=== PATIENT | female | born 2000 | race Caucasian/White ===

== ENCOUNTER 2024-05-01 10:52 | Emergency (ER) | payer BC, SELFPAY ==
[2024-05-01 11:22] VITALS: BP 116/87; PULSE 111; RESP 16; TEMP 36.5; O2SAT 99
[2024-05-01 11:30] LABS: EDUAAPPEAR Cloudy; EDUABILI Negative (Negative); EDUABLOOD 3+ (Negative); EDUACOLOR1 Dark; EDUAGLUCOSE Negative (Negative); EDUAKETONE Negative (Negative); EDUALEUKO Trace (Negative); EDUANITRATE Negative (Negative); EDUAPH 5.5; EDUAPROTEIN 1+ (Negative); EDUAUROBILI 0.2
--- NOTE | 2024-05-01 11:32 | ED.GENADULT ---
HPI - General Adult General Chief complaint: Urogenital-Female Stated complaint: UTI Symptoms Time Seen by Provider: 05/01/24 11:33 Source: patient, RN notes reviewed and old records reviewed Mode of arrival: ambulatory Limitations: no limitations History of Present Illness HPI narrative: 24-year-old female to [facility] Care complaint brown/ red urine since yesterday morning. Patient endorses chronic history of urinary tract infections as well as kidney stones. Patient states he passed a kidney stone successfully at home 1 month ago. Patient sees urology at [facility]. Patient denies flank pain, abdominal pain, pain with urination, urgency, frequency, allergies , nausea, fever. Patient resting comfortably in exam room in no acute distress. Related Data Home Medications Medication Instructions Recorded Confirmed duloxetine 60 mg capsule,delayed 60 mg PO DAILY 05/01/24 05/01/24 release methylphenidate HCl 10 mg tablet 10 mg PO TID 05/01/24 05/01/24 potassium citrate 10 mEq (1,080 10 meq PO TID 05/01/24 05/01/24 mg) tablet,extended release Allergies Allergy/AdvReac Type Severity Reaction Status Date / Time No Known Allergies Allergy Verified 05/01/24 11:21 Review of Systems Review of Systems: All systems reviewed & are unremarkable except as noted in HPI and below Constitutional: Constitutional: Reports no additional constitutional complaints Eyes: Eyes: Reports no additional eye complaints ENT: Reports system reviewed and no additional complaints, except as documented Cardiovascular: Cardiovascular: Reports no additional cardiovascular complaints, Denies chest pain and Denies dyspnea Respiratory: Respiratory: Reports no additional respiratory complaints, Denies cough and Denies dyspnea Genitourinary: Genitourinary: Reports as per HPI, Reports hematuria, Denies urinary frequency, Denies nocturia, Denies dysuria, Denies flank pain, Denies urinary incontinence, Denies urinary hesitancy and Denies urinary urgency Musculoskeletal: Musculoskeletal: Reports no additional musculoskeletal complaints Neurologic: Reports system reviewed and no additional complaints, except as documented Psychiatric: Psychiatric: Reports no additional psychiatric complaints PMFSH Comments At the time of my signature, I reviewed and agree with the nursing past medical, surgical, social, and family history. There is no relevant family history pertinent to the patient complaint. Exam Const: General: cooperative, healthy appearing, comfortable, no acute distress, alert and well nourished Nutritional Appearance: well nourished Orientation/consciousness: patient oriented x3 Limitations: no limitations HENMT: Head: normal to inspection Ears: external ears normal Face/Nose/Sinus: Normal external nose present, Normal nares present, normal facial exam, No erythema and No edema Face and sinus: normal facial exam, no erythema and no edema Mouth: Yes Normal oral and palatal mucosa present Eyes: General: appearance normal, both eyes and all related structures Neck: Neck: normal visual inspection, full ROM and no meningeal signs Lymphatic: no lymphadenopathy noted and no lymphedema noted Chest: Chest palpation & inspection: normal inspection of the chest Resp: Effort & Inspection: normal respiratory effort and able to speak in complete sentences Auscultation: clear to auscultation bilaterally Cardio: Jugular venous distension: no JVD Rate: regular rate Rhythm: regular rhythm : General: Yes no CVA tenderness Back/Spine/Pelvis: Cervical Spine: cervical ROM normal Skin: General skin exam: normal color, no rashes or lesions noted and turgor normal Neuro: General: patient oriented x3, gait normal, moves all extremities and no meningeal signs Speech: normal speech Gait exam (Neuro): Normal gait present Extrem: General: normal to inspection, full ROM and capillary refill normal Psych: Appearance: grossly normal and well kempt Course Course Emergency Course: Some parts of this dictation were generated by voice recognition software and may contain typographical and/or grammatical inaccuracies. Level of Care: Express Care Visit Vital Signs Vital signs: Vital Signs Temperature 36.5 C 05/01/24 11:22 Pulse Rate 111 H 05/01/24 11:22 Respiratory Rate 16 05/01/24 11:22 Blood Pressure 116/87 05/01/24 11:22 Pulse Oximetry 99 05/01/24 11:22 Temperature 36.5 C 05/01/24 11:22 Pulse Rate 111 H 05/01/24 11:22 Respiratory Rate 16 05/01/24 11:22 Blood Pressure 116/87 05/01/24 11:22 Pulse Oximetry 99 05/01/24 11:22 reviewed Medical Decision Making MDM Narrative Medical decision making narrative: 24-year-old female to Express Care complaint brown/ red urine since yesterday morning. Patient endorses chronic history of urinary tract infections as well as kidney stones. Patient states he passed a kidney stone successfully at home 1 month ago. Patient sees urology at [facility]. Patient denies flank pain, abdominal pain, pain with urination, urgency, frequency, allergies , nausea, fever. Patient resting comfortably in exam room in no acute distress. Patient is sitting comfortably in exam room nontoxic in appearance. Patient exam unremarkable. No CVA tenderness. UA positive for UTI in clinic. Culture sent. Patient appropriate for outpatient treatment and follow-up. Discharge instructions reviewed with patient, as well as provided in writing per nursing staff. The instructions also include specific and strict return/GO TO THE ER as well as f/u information. All questions have been answered, and the patient deny any further questions with discharge and discharge plan. Some parts of this dictation were generated by voice recognition software and may contain typographical and/or grammatical inaccuracies. Differential Diagnosis Differential Diagnosis: UTI, STI, yeast INFECTION Vital Signs Vital Signs: Vital Signs Temperature 36.5 C 05/01/24 11:22 Pulse Rate 111 H 05/01/24 11:22 Respiratory Rate 16 05/01/24 11:22 Blood Pressure 116/87 05/01/24 11:22 Pulse Oximetry 99 05/01/24 11:22 Temperature 36.5 C 05/01/24 11:22 Pulse Rate 111 H 05/01/24 11:22 Respiratory Rate 16 05/01/24 11:22 Blood Pressure 116/87 05/01/24 11:22 Pulse Oximetry 99 05/01/24 11:22 Lab Data Labs: Lab Results 05/01/24 Range/Units 11:28 POC Urine Color Dark POC Urine Clarity Cloudy POC Urine pH 5.5 POC Ur Specif [place] 1.010 POC Urine Protein 1+ (Negative) POC Ur Glucose (UA) Negative (Negative) POC Urine Ketones Negative (Negative) POC Urine Blood 3+ (Negative) POC Urine Nitrite Negative (Negative) POC Urine Bilirubin Negative (Negative) POC Urine Urobilinogen 0.2 POC U Leukocyte Esteras Trace (Negative) Discharge Plan Discharge Clinical Impression: Urinary tract infection Patient Disposition: Home, Self-Care Condition: Stable Instructions: Urinary Tract Infection in Women (ED) Additional Instructions: We will send a urine culture off to the lab; if the culture identifies an organism that the prescribed antibiotic will not treat, you will receive a phone call from an urgent care staff member and an appropriate antibiotic will be prescribed. -Your symptoms should begin to improve within a day of starting antibiotics. But you should finish all the antibiotic pills you get. Otherwise your infection might come back. -Also recommend: drink more fluid. It might help flush out germs, and it does no harm -Tylenol/ibuprofen as needed for pain -Follow-up with your primary care provider for urine recheck OR if your symptoms persist, change or worsen significantly before you can contact your personal physician then please, without delay, go to the emergency department for further evaluation. Prescriptions: New cephalexin 500 mg capsule 500 mg PO Q12H Qty: 14 0RF No Action methylphenidate HCl 10 mg tablet 10 mg PO TID potassium citrate 10 mEq (1,080 mg) tablet extended release 10 meq PO TID duloxetine 60 mg capsule,delayed release(DR/EC) 60 mg PO DAILY Follow-up/Referrals: PHYSICIAN NOT ON STAFF,NONSTAFF [Primary Care Provider] - Stand Alone Forms: Work/School Release IP
== END 2024-05-01 11:49 | disposition home or self-care (01) ==
PROVIDERS: Emergency Provider Nurse Practitioner Family
DX: N39.0 Urinary tract infection, site not specified (principal); F90.9 Attention-deficit hyperactivity disorder, unspecified type
CPT/HCPCS: 81003; 87086; 99203; G0463

== ENCOUNTER 2024-06-05 14:48 | Emergency (ER) | payer BC, SELFPAY ==
--- NOTE | 2024-06-05 19:45 | ED.GENADULT ---
HPI - General Adult General Chief complaint: Urogenital-Female Stated complaint: Urinalysis Related Data Home Medications Medication Instructions Recorded Confirmed duloxetine 60 mg capsule,delayed 60 mg PO DAILY 05/01/24 05/01/24 release methylphenidate HCl 10 mg tablet 10 mg PO TID 05/01/24 05/01/24 potassium citrate 10 mEq (1,080 10 meq PO TID 05/01/24 05/01/24 mg) tablet,extended release Allergies Allergy/AdvReac Type Severity Reaction Status Date / Time No Known Allergies Allergy Verified 05/01/24 11:21 Discharge Plan Discharge Prescriptions: No Action methylphenidate HCl 10 mg tablet 10 mg PO TID potassium citrate 10 mEq (1,080 mg) tablet extended release 10 meq PO TID duloxetine 60 mg capsule,delayed release(DR/EC) 60 mg PO DAILY cephalexin 500 mg capsule 500 mg PO Q12H Qty: 14 0RF Follow-up/Referrals: UNKNOWN,DOCTOR [Primary Care Provider] -
== END 2024-06-05 14:53 | disposition left against medical advice (07) ==
LOC: EXPGOSH 14:53
PROVIDERS: Emergency Provider Nurse Practitioner Family
DX: Z53.21 Procedure and treatment not carried out due to patient leaving prior to being seen by health care provider (principal)
CPT/HCPCS: 99199

== ENCOUNTER 2024-06-05 15:00 | Outpatient (CLI) | payer BC, SELFPAY ==
[2024-06-05 19:55] LABS: Add Urine Microscopic? YES; Appearance Urine Cloudy (Clear); Bacteria Urine Rare /hpf; Bilirubin Urine Negative (Negative); Blood Urine 1+ (Negative); Color Urine Yellow (Yellow); Glucose Urine UA Negative (Negative); Ketones Urine Negative (Negative); Leukocyte Esterase Ur 2+ LEU/UL (Negative); Nitrate Urine Negative (Negative); Protein Urine 1+ mg/dL (Negative); Specific Grav Ur 1.017 (1.001-1.035); Squamous Epithelial Cell Urine None Seen /hpf (Few); Urobilinogen Urine 0.2 mg/dL (<2.0); WBC Urine >100 /hpf (0-3); pH Urine 5.5 (5.0-9.0)
== END 2024-06-05 15:01 | disposition home or self-care (01) ==
DX: R30.0 Dysuria (principal)
CPT/HCPCS: 81001; 87086; 87186

== ENCOUNTER 2024-09-24 08:35 | Emergency (ER) | payer BC, SELFPAY ==
[2024-09-24 08:44] VITALS: BP 134/77; PULSE 102; RESP 16; TEMP 36.4; O2SAT 100
--- NOTE | 2024-09-24 09:03 | ED.EAR ---
HPI - Ear Problem General Chief complaint: Ear Stated complaint: R EARACHE Time Seen by Provider: 09/24/24 08:54 Source: patient and RN notes reviewed Mode of arrival: ambulatory Limitations: no limitations History of Present Illness HPI Narrative: Patient presents today complaining of 3 day history nasal congestion, rhinorrhea. Right ear pain since yesterday with decreased hearing. Denies fever shortness of breath. She has been taking Tylenol and Sudafed without much relief and currently rates her ear pain 3/10. Reports frequent ear infections. No recent antibiotic use. Related Data Home Medications ?Medication ?Instructions ?Recorded ?Confirmed ?Last Taken ?Type methylphenidate HCl 10 mg tablet 10 mg PO TID 05/01/24 05/01/24 Unknown History hydroxyzine HCl 50 mg tablet mg 09/24/24 Unknown History Allergies Allergy/AdvReac Type Severity Reaction Status Date / Time No Known Allergies Allergy Verified 09/24/24 08:47 Review of Systems Review of Systems: CONSTITUTIONAL: Denies body aches, fever, chills, or sweats. EYES: Denies visual changes, redness, or discharge. ENT: + congestion, rhinorrhea, right ear pain with decreased hearing CARDIOVASCULAR: Denies chest pain, palpitations, or edema. RESPIRATORY: Denies cough or dyspnea. GASTROINTESTINAL: Denies abdominal pain, nausea, vomiting, or diarrhea. GENITOURINARY: Denies dysuria or hematuria. SKIN: Denies rash, itching, or wounds. MUSCULOSKELETAL: Denies back pain, joint pain, or myalgia. NEUROLOGIC: Denies headache, numbness, tingling, or weakness. PSYCH: Denies depression or anxiety. PMFSH Comments At time of signature, I have reviewed and agree with nursing past medical, surgical, social and family history unless otherwise noted. Please see nursing chart for further information. There is no relevant family history pertinent to the presenting complaint Exam Narrative: GENERAL: Mildly ill-appearing, well-nourished, and in no acute distress. HEAD: Normocephalic, atraumatic. EYES: EOMI. No redness or drainage. Conjunctivae normal. ENT: Mucous membranes pink and moist. Nares congested with rhinorrhea. Left TM normal. Right TM mildly erythematous and bulging with slightly cloudy material. Throat normal. Uvula midline. NECK: Normal AROM. CHEST: No respiratory distress. Clear to auscultation. HEART: Regular rate and rhythm. No murmur appreciated. EXTREMITIES: Normal range of motion. No edema. SKIN: Warm, dry, no rash. Capillary refill normal. Normal skin turgor. NEURO: No focal deficits. Alert and oriented x3. Gait steady. PSYCH: Normal affect. No signs of depression or anxiety. Course Course Level of Care: Express Care Visit Vital Signs Vital signs: Vital Signs Temperature 97.6 F 09/24/24 08:44 Pulse Rate 102 H 09/24/24 08:44 Respiratory Rate 16 09/24/24 08:44 Blood Pressure 134/77 09/24/24 08:44 Pulse Oximetry 100 09/24/24 08:44 Temperature 97.6 F 09/24/24 08:44 Pulse Rate 102 H 09/24/24 08:44 Respiratory Rate 16 09/24/24 08:44 Blood Pressure 134/77 09/24/24 08:44 Pulse Oximetry 100 09/24/24 08:44 Reviewed Medical Decision Making MDM Narrative Medical decision making narrative: Patient has been diagnosed with URI with developing otitis media. She will be treated with amoxicillin for the otitis media. Remainder will resolve on its own. Patient agrees with plan. Anticipatory guidance given. Differential Diagnosis Differential Diagnosis: URI, AOM, otitis externa, ruptured TM, serous otitis Vital Signs Vital Signs: Vital Signs Temperature 97.6 F 09/24/24 08:44 Pulse Rate 102 H 09/24/24 08:44 Respiratory Rate 16 09/24/24 08:44 Blood Pressure 134/77 09/24/24 08:44 Pulse Oximetry 100 09/24/24 08:44 Temperature 97.6 F 09/24/24 08:44 Pulse Rate 102 H 09/24/24 08:44 Respiratory Rate 16 09/24/24 08:44 Blood Pressure 134/77 09/24/24 08:44 Pulse Oximetry 100 09/24/24 08:44 Critical Care Time Critical Care Time Critical Care Time: No Discharge Plan Discharge Clinical Impression: Acute right otitis media Upper respiratory infection Qualifiers: URI type: unspecified URI Qualified Code(s): J06.9 - Acute upper respiratory infection, unspecified Patient Disposition: Home, Self-Care Condition: Stable Instructions: Ear Infection (ED) Additional Instructions: Please take the amoxicillin as prescribed until gone. The remainder of your symptoms are likely due to a viral illness, which is not treated with antibiotics. Take Tylenol or ibuprofen for pain. Follow-up with your PCP in 3 days if symptoms are not improving. Your blood pressure was elevated above 120/80 today at Urgent Care. This puts you above the threshold for follow up. Please schedule a followup visit with your personal physician as soon as possible, for further evaluation and treatment. Even blood pressure exceeding 120/80 may indicate pre-hypertension. Patient Language: Pal[place] Prescriptions: New amoxicillin 875 mg tablet 875 mg PO Q12H 7 Days Qty: 14 0RF No Action methylphenidate HCl 10 mg tablet 10 mg PO TID hydroxyzine HCl 50 mg tablet Follow-up/Referrals: Mauro,Mariama [Other] Time of Disposition: 09:08
== END 2024-09-24 09:10 | disposition home or self-care (01) ==
PROVIDERS: Emergency Provider Nurse Practitioner
DX: H66.91 Otitis media, unspecified, right ear (principal); J06.9 Acute upper respiratory infection, unspecified; F90.9 Attention-deficit hyperactivity disorder, unspecified type
CPT/HCPCS: 99213; G0463